=== PATIENT | female | born 1955 | race Caucasian/White ===

== ENCOUNTER 2021-09-14 08:59 | Outpatient (CLI) | payer MEDICARE | END 2021-09-14 09:00 | disposition home or self-care (01) | LOC: CSHLAB 08:59 | PROVIDERS: ATTEND Family Medicine | DX: Z20.822 Contact with and (suspected) exposure to COVID-19 (principal) | CPT/HCPCS: 87811 ==

== ENCOUNTER 2021-09-17 09:52 | Outpatient (CLI) | payer MEDICARE | END 2021-09-17 09:53 | disposition home or self-care (01) | LOC: CSHRAD 09:52 | PROVIDERS: ATTEND Otolaryngology Plastic Surgery within the Head & Neck | DX: R13.13 Dysphagia, pharyngeal phase (principal); R13.14 Dysphagia, pharyngoesophageal phase; J35.1 Hypertrophy of tonsils; T17.390A Other foreign object in larynx causing asphyxiation, initial encounter | CPT/HCPCS: 74230 ==

== ENCOUNTER 2023-01-28 13:52 | Outpatient (CLI) | payer MEDICARE | END 2023-01-28 13:53 | disposition home or self-care (01) | LOC: CSHMAMMO 13:52 | PROVIDERS: ATTEND Internal Medicine | DX: Z12.31 Encounter for screening mammogram for malignant neoplasm of breast (principal); Z80.3 Family history of malignant neoplasm of breast | CPT/HCPCS: 77063; 77067 ==

== ENCOUNTER 2024-03-23 13:31 | Outpatient (CLI) | payer MEDICARE | END 2024-03-23 13:32 | disposition home or self-care (01) | LOC: CSHMAMMO 13:31 | PROVIDERS: ATTEND Internal Medicine | DX: Z12.31 Encounter for screening mammogram for malignant neoplasm of breast (principal); Z80.3 Family history of malignant neoplasm of breast | CPT/HCPCS: 77063; 77067 ==